=== PATIENT | female | born 1940 | race Caucasian/White ===

== ENCOUNTER 2017-10-17 11:10 | Observation (INO) ==
[2017-10-17] MEDS ORDERED: *HR* FentaNYL (PF) 100 MCG/2 ML VIAL IVP ONE (11:25)
--- NOTE | 2017-10-17 11:29 | Emergency Department Note ---
Disposition Clinical Impression: Pyelonephritis Disposition: Admitted As Inpatient Condition: Fair Forms: ED Satisfaction Letter Time of Disposition: 13:31 Back Pain HPI - General Chief Complaint: ED Back Pain/Injury Stated Complaint: right flank pain Time Seen by Provider: 10/17/17 11:16 Source: patient, family Mode of arrival: private vehicle Limitations: no limitations Nursing Notes Reviewed: Yes Vital Signs Reviewed: Yes - History of Present Illness Pt Subjective Complaint: back pain Onset (ago): hour(s) (Started abruptly about 5:00 this morning) Duration: intermittent Similar Symptoms Previously: No Location: right flank Pain Severity: severe Quality: sharp Radiation: none Improves with: immobilization Worsens with: movement Context: unknown Associated symptoms: Reports: denies other symptoms - Related Data Home Medications Medication Instructions Recorded Confirmed Alendronate Sodium 70 mg PO QWEEK 10/10/14 10/17/17 Amlodipine [Norvasc] 10 mg PO DAILY 10/10/14 10/17/17 Aspirin Enteric Coated [Aspirin EC] 81 mg PO DAILY 10/10/14 10/17/17 HydrALAZINE 25 mg PO TID 10/10/14 10/17/17 Levothyroxine [Synthroid] 88 mcg PO 0630 10/10/14 10/17/17 Lisinopril [Zestril] 40 mg PO DAILY 10/10/14 10/17/17 Loratadine [Claritin] 10 mg PO DAILY 10/10/14 10/17/17 Metformin [Glucophage] 500 mg PO BIDWM 10/10/14 10/17/17 Omega3/Dha/Epa/Fish Oil/Vit D3 1 each PO BID 10/10/14 10/17/17 [Fish Oil + Vitamin D-3 Softgel] Vitamin E 1,000 unit PO DAILY 10/10/14 10/17/17 Warfarin [Coumadin] 2.5 mg PO AD 09/22/17 10/17/17 Metoprolol [Lopressor] 100 mg PO BID 10/17/17 10/17/17 Allergies Allergy/AdvReac Type Severity Reaction Status Date / Time ezetimibe [From Zetia] Allergy Hives Verified 10/17/17 11:10 Aelcxyf-Dlj-Gdn Reductase AdvReac Muscle Pain Verified 10/17/17 11:10 Inhibitor [Statins] Sulfa (Sulfonamide AdvReac Hives Verified 10/17/17 11:10 Antibiotics) All systems ED: reviewed and negative except as stated. Constitutional: Denies: fever, chills ENT ED: Denies: ear pain, throat pain, congestion Cardiovascular: Denies: chest pain, palpitations Respiratory: Denies: cough, dyspnea Gastrointestinal: Reports: nausea, vomiting. Denies: abdominal pain, diarrhea, constipation Integumentary: Denies: rash Neurological: Denies: headache, weakness, numbness Past Medical History - Past Medical History Attestation: Yes The following information was validated with the patient. Source: patient, old records reviewed, nursing notes reviewed Medical history: Reports: arthritis, atrial fibrillation, COPD, coronary artery disease, diabetes, hyperlipidemia, hypertension, migraine, thyroid disease, valvular heart disease Surgical history: Reports: , cholecystectomy, coronary bypass (CABG), pacemaker/AICD, other Psychiatric history: Reports: no psych history CHAINSTITCH FELLED SEAM OPERATOR history: Reports: no CHAINSTITCH FELLED SEAM OPERATOR history - Social History Smoking Status: Never smoker Smokeless Tobacco Status: No Alcohol use: Reports: none Drug use: Reports: none Physical Exam - General Limitations: no limitations General appearance: alert, in no apparent distress - Head Head exam: atraumatic, normocephalic, normal inspection - Eye Eye exam: Present: normal appearance, PERRL, EOMI. Absent: scleral icterus, conjunctival injection - ENT ENT exam: normal exam, normal oropharynx, mucous membranes moist, normal external ear exam - Neck Neck exam: Present: normal inspection, full ROM. Absent: tenderness - Chest Chest inspection: Present: normal inspection, symmetric chest wall rise. Absent : tenderness - Respiratory Respiratory exam: Present: normal lung sounds bilaterally. Absent: respiratory distress, wheezes - Cardiovascular Cardiovascular exam: Present: regular rate, normal rhythm, normal heart sounds - Abdominal Exam Abdominal exam: Present: soft, Non-Tender, normal bowel sounds - Extremities Exam Extremities exam: Present: normal inspection. Absent: tenderness, pedal edema - Back Exam Back exam: Present: normal inspection, other (Patient was slow going from a supine to sitting position stating that it hurt her back to put her back to that range of motion.). Absent: CVA tenderness (R), paraspinal tenderness - Neurological Exam Neurological exam: Present: alert, oriented X3. Absent: motor sensory deficit - Psychiatric Psychiatric exam: Present: normal affect, normal mood - Skin Skin exam: Present: warm, dry. Absent: rash Course Course Narrative: Patient presents with right flank pain abrupt in onset this morning about 5:00. Some of her story sounds like muscular and some of it sounds like it could be something like kidney stone. She complains of pain with range of motion of her back on one hand but then on the other hand describes as being intermittent and sometimes coming when she sitting still and not moving. She has a history of self cathetering herself 3 times a day so certainly at risk for urinary tract problems. My physical exam shows increased discomfort with range of motion but no reproducibility to the discomfort on palpation. I am a get her medications for pain and I am going to CT her abdomen looking for kidney stone or other intra-abdominal or retroperitoneal pathology. I will also be checking her urine for infection. Disposition will be based on diagnostic results and reevaluation. - Reevaluation(s) Reevaluation #1: CAT scan shows hydronephrosis on both sides. However based on ultrasound back in July, this is a chronic condition. What we do see on the CAT scan is no obstructing ureteral stone but we do see some inflammatory changes around the ureter. Coupling this with the strongly positive urinalysis, my concern is that this patient is having pyelonephritis. She has been vomiting at home, she has diabetes and other chronic medical conditions, and she has a straight catheter herself so there is an obstructive issue. For these reasons I think that the patient should be admitted to the hospital for further IV antibiotic. I given a dose of Rocephin here. I will call the hospitalist to discuss management. Time: 13:16 - Consultations Consultation #1: Dr. Olivo, hospitalist - I discussed the case with the hospitalist. He agrees with admission and is accepted the patient. Time: 13:20 Vital Signs Temperature 98.3 F 10/17/17 11:11 Pulse Rate 60 10/17/17 11:11 Respiratory Rate 17 10/17/17 11:11 Blood Pressure 169/87 10/17/17 11:11 O2 Sat by Pulse Oximetry 93 10/17/17 11:11 Temperature 98.3 F 10/17/17 11:11 Pulse Rate 60 10/17/17 13:00 Respiratory Rate 18 10/17/17 13:00 Blood Pressure 128/63 10/17/17 13:00 O2 Sat by Pulse Oximetry 93 10/17/17 13:00 Oxygen Delivery Oxygen Delivery Room Air Back Pain/Injury - Medical Records Medical records reviewed: Yes I reviewed the patient's medical records. - Lab Data Lab results reviewed: Yes I reviewed the patient's lab results. Lab Results 10/17/17 Range/Units 12:31 Urine Color Yellow (Yellow) Urine Clarity Clear (Clear) Urine pH 7.0 (5.0-8.0) pH Units Ur Specific [place] 1.025 (1.010-1.025) Urine Protein >=300 H (Neg-Trace) mg/dL Urine Glucose (UA) Normal (Normal) mg/dL Urine Ketones Negative (Negative) mg/dL Urine Blood Large H (Negative) Urine Nitrite Positive A (Negative) Urine Bilirubin Negative (Negative) Urine Urobilinogen Normal (Normal) mg/dL Ur Leukocyte Esterase Small H (Negative) Urine Microscopic RBC 15-30 H (0-3) per hpf Urine Microscopic WBC 5-15 H (0-3) per hpf Ur Squamous Epith Cells Few (None-Few) per lpf Urine Bacteria Many H (None-Few) per hpf Ur Culture Indicated? YES A (NO) - Radiology Data Radiology results reviewed: Yes I reviewed the patient's radiology results.
[2017-10-17 12:47] LABS: Bilirubin,Urine Negative (Negative); Blood,Urine Large (Negative); Clarity,Urine Clear (Clear); Color,Urine Yellow (Yellow); Glucose,Urine (UA) Normal (Normal); Ketones,Urine Negative (Negative); Leukocyte Esterase,Urine Small (Negative); Nitrite,Urine Positive (Negative); Protein,Urine >=300 mg/dL (Neg-Trace); Specific Gravity,Urine 1.025 (1.010-1.025); Urobilinogen,Urine Normal (Normal)
[2017-10-17 13:01] LABS: Bacteria,Urine Many per hpf (None-Few); RBC,Urine 15-30 per hpf (0-3); Squamous Epithelial Cell,Urine Few per lpf (None-Few)
[2017-10-17 14:39] LABS: Basophils % 0.2 %; Eosinophils % 0.2 %; Hematocrit 36.9 % (35.3-44.9); Hemoglobin 12.1 g/dL (11.5-15.4); Immature Granulocytes % 0.4 % (0-4); Lymphocytes # 0.9 K/mcL (0.6-4.6); Mean Corpuscular HGB Conc 32.8 g/dL (31.6-35.5); Mean Corpuscular Hemoglobin 29.3 pg (28.0-33.3); Mean Corpuscular Volume 89.3 fL (83.0-100.0); Mean Platelet Volume 9.6 fL (9.4-12.4); Monocytes # 0.4 K/mcL (0.0-1.3); Monocytes % 7.6 %; Neutrophils # 3.8 K/mcL (1.6-8.9); Platelet Count 236 K/mcL (140-400); Red Blood Count 4.13 M/mcL (3.82-4.97); Red Cell Distribution Width 14.9 % (11.5-14.5); Segmented Neutrophils % 74.6 %
[2017-10-17 14:47] LABS: INR 4.5; Prothrombin Time 50.7 Seconds (9.4-12.1)
[2017-10-17 14:54] LABS: BUN/Creatinine Ratio 16 (6-26); Blood Urea Nitrogen 11 mg/dL (8-23); Calcium 9.2 mg/dL (8.6-10.3); Carbon Dioxide 30 mEq/L (23-29); Chloride 103 mEq/L (98-107); Glucose 112 mg/dL (70-105); Osmolality,Calculated 292 (280-300); Potassium 3.7 mEq/L (3.5-5.1); Sodium 141 mEq/L (136-145); eGFR For Non-African Americans > 60 (> 60)
[2017-10-17] MEDS ORDERED: Naloxone 0.4 MG/ML INJ IVP PRN (16:12)
[2017-10-17] MEDS ORDERED: NON-FORMULARY MEDICATION 1 EACH EACH (Alendronate Sodium [Alendronate Sodium] 70 MG) PO SCH (16:12)
[2017-10-17] MEDS ORDERED: 0.9 % Sodium Chloride 1,000 ML IVC SCH (16:12)
[2017-10-17] MEDS ORDERED: Acetaminophen 325 MG TABLET PO PRN (16:12)
[2017-10-17] MEDS: *HR* Metformin 500 MG TABLET PO SCH (16:51)
[2017-10-17] MEDS: hydrALAZINE 25 MG TABLET PO SCH ×2 (16:51→20:51)
--- NOTE | 2017-10-17 19:06 | Internal Med History&Physical ---
Date of Encounter: 10/17/17 Time of Encounter: 18:35 Assessment and Plan (1) Pyelonephritis Current visit: Yes Status: Acute She was given Rocephin empirically in emergency room. This will be continued with lactobacillus. (2) Hypertension Current visit: Yes Status: Chronic Continue Norvasc, lisinopril, Lopressor, and hydralazine. Qualifiers: Hypertension type: essential hypertension Qualified Code(s): I10 - Essential (primary) hypertension (3) DM type 2 (diabetes mellitus, type 2) Current visit: Yes Status: Chronic Hemoglobin A1c was 5.1% on 01/25/2017. Continue Glucophage. Qualifiers: Diabetes mellitus custodial insulin use: without local intermodal truck driver use Diabetes mellitus complication status: without complication Qualified Code(s): E11.9 - Type 2 diabetes mellitus without complications (4) Hypothyroidism Current visit: Yes Status: Chronic TSH was 3.543 on 01/25/2017. Continue present dose Synthroid. Qualifiers: Hypothyroidism type: unspecified Qualified Code(s): E03.9 - Hypothyroidism , unspecified Internal Medicine - H&P: HPI Chief complaint: Right flank pain Admitted From: Emergency Dept Plans for Post Hospital Care: Home History of present illness: Ms. Tabares is a 77 year old female who came to emergency room complaining of discomfort in her right flank that awakened her approximately 0500 today. She has had similar previous pain but the pain today was more severe and longer duration. She did self-catheterization twice with without relief. She had an episode of vomiting and decided to come to the emergency room. She was evaluated and felt to have possible UTI and was admitted to [facility] floor for ongoing care needs. history is pertinent for performing self catheter for approximately one year. She does not know the specific diagnosis requiring catheterization. She reports she has had occasional UTIs in the past. She denies other kidney or bladder disorders. Past Med Surg Social Fam HX - Past Medical History Medical history: arthritis, atrial fibrillation, COPD, coronary artery disease, diabetes, hyperlipidemia, hypertension, migraine, thyroid disease, valvular heart disease Additional medical history: AORTIC VALVE REPLACED. PACEMAKER Psychiatric history: no psych history - Past Surgical History Surgical History: , cholecystectomy, coronary bypass (CABG), pacemaker/ AICD, other Additional surgical history: tonsils removed - Social History Smoking Status: Never smoker Smokeless Tobacco Status: No Alcohol use: none Drug use: none Internal Medicine - H&P: Meds Alendronate Sodium 70 mg PO QWEEK 10/10/14 [History] Amlodipine [Norvasc] 10 mg PO DAILY 10/10/14 [History] Aspirin Enteric Coated [Aspirin EC] 81 mg PO DAILY 10/10/14 [History] HydrALAZINE 25 mg PO TID 10/10/14 [History] Levothyroxine [Synthroid] 88 mcg PO 0630 10/10/14 [History] Lisinopril [Zestril] 40 mg PO DAILY 10/10/14 [History] Loratadine [Claritin] 10 mg PO DAILY 10/10/14 [History] Metformin [Glucophage] 500 mg PO BIDWM 10/10/14 [History] Omega3/Dha/Epa/Fish Oil/Vit D3 [Fish Oil + Vitamin D-3 Softgel] 1 each PO BID [History] Vitamin E 1,000 unit PO DAILY 10/10/14 [History] Warfarin [Coumadin] 2.5 mg PO AD 09/22/17 [History] Metoprolol [Lopressor] 100 mg PO BID 10/17/17 [History] 3 Allergy/AdvReac Type Severity Reaction Status Date / Time ezetimibe [From Zetia] Allergy Hives Verified 10/17/17 11:10 Vistdco-Unp-Ofk Reductase AdvReac Muscle Pain Verified 10/17/17 11:10 Inhibitor [Statins] Sulfa (Sulfonamide AdvReac Hives Verified 10/17/17 11:10 Antibiotics) All Systems PM: A 10-system review of systems was performed and is negative for pertinent findings except as documented above in the HPI. Review of systems: Gen.: She states her weight is stable the past few months Cardiovascular: She has history of hypertension. She reports pacemaker was placed in 2011 at time of mechanical aortic valve replacement for bicuspid aortic valve. She denies SD heart failure DVT or pulmonary embolus. She is on lifelong Coumadin . The chart reports history of atrial fibrillation. Respiratory: She is a lifelong nonsmoker. She had PFTs 02/17/2017 which showed FVC 62% predicted, FEV1 68% predicted, FEV1/FVC 82%, MVV 48% predicted, RV 67% predicted, and DLCO (corrected) 63% predicted. Interpretation was restrictive lung disease with impaired diffusing capacity. No obstructive lung disease evidence. GI: She has had remote cholecystectomy. She denies disorders of her liver or exocrine pancreas. : As per history of present illness Neurologic: She denies large distribution strokes or seizures. Endocrine: She was diagnosed with DM 2 approximately 1999. She has hypothyroidism and hyperlipidemia. Hematology/oncology: She denies blood disorders cancers or anemia Psychiatric: She denies anxiety depression or other mental health issues. [place] skeletal: She has DJD but denies gout or other bone joint or muscle disorders. - Constitutional Vitals: Temp Pulse Resp BP Pulse Ox 99.1 F 63 16 153/75 93 10/17/17 18:36 10/17/17 18:36 10/17/17 18:36 10/17/17 18:36 10/17/17 18:36 Exam: Gen.: She is well developed well-nourished female resting comfortably in bed who appears in no acute distress at present time HEENT: Head is atraumatic and normocephalic. Eyes: EOMI. There is no scleral icterus. Mouth: Mucosa is moist. Neck: Supple and nontender. There is no thyromegaly or adenopathy noted. Heart: Regular without murmurs gallops or ectopics Lungs: No wheezes or crackles are heard. Back: Straight without flank tenderness to percussion. Abdomen: Soft and nontender. No masses or guarding are noted. Extremities: There is no cyanosis edema or clubbing noted. Dorsalis pedis and posttibial pulses are trace to 1+ palpable bilaterally. She has chronic venous stasis pigmentation changes of her lower legs and feet. She has minimal DJD changes of hands. Neurologic: Mental status: She is talkative and a good historian. Cranial nerves: Smile is symmetric. Forehead wrinkles bilaterally. Tongue protrudes midline. EOMI. Motor: There is no pronator drift. Cerebellar: Finger to nose is intact bilaterally. Skin: Warm and dry Internal Med - H&P Results - Labs CBC & Chem 7: 10/17/17 14:31 10/17/17 14:31 Labs: Short CBC 10/17/17 Range/Units 14:31 WBC 5.1 (4.3-11.1) K/mcL Hgb 12.1 (11.5-15.4) g/dL Hct 36.9 (35.3-44.9) % Plt Count 236 (140-400) K/mcL Neutrophils # 3.8 (1.6-8.9) K/mcL BMP 10/17/17 14:31 Sodium 141 Potassium 3.7 Chloride 103 Carbon Dioxide 30 H BUN 11 Creatinine 0.69 Glucose 112 H Calcium 9.2
[2017-10-17] MEDS: Lactobacillus 1 EACH CAP.SPRINK PO SCH (20:51)
[2017-10-17] MEDS: *HR* HYDROcodone/Acet 5/325 mg TABLET PO PRN (21:36)
[2017-10-18 05:22] LABS: Eosinophils % 0.2 %; Hematocrit 33.6 % (35.3-44.9); Hemoglobin 11.2 g/dL (11.5-15.4); Immature Granulocytes % 0.2 % (0-4); Lymphocytes # 0.8 K/mcL (0.6-4.6); Lymphocytes % 17.3 %; Mean Corpuscular HGB Conc 33.3 g/dL (31.6-35.5); Mean Corpuscular Hemoglobin 29.9 pg (28.0-33.3); Mean Corpuscular Volume 89.6 fL (83.0-100.0); Mean Platelet Volume 10.1 fL (9.4-12.4); Monocytes # 0.6 K/mcL (0.0-1.3); Monocytes % 13.4 %; Neutrophils # 3.2 K/mcL (1.6-8.9); Platelet Count 226 K/mcL (140-400); Red Blood Count 3.75 M/mcL (3.82-4.97); Red Cell Distribution Width 14.9 % (11.5-14.5); Segmented Neutrophils % 68.9 %
[2017-10-18 06:02] LABS: INR 4.6; Prothrombin Time 52.3 Seconds (9.4-12.1)
[2017-10-18 06:05] LABS: Alanine Aminotransferase 10 Units/L (7-52); Albumin 3.5 g/dL (3.5-5.7); Albumin/Globulin Ratio 1.2 (1.1-2.2); Alkaline Phosphatase 37 Units/L (34-104); Aspartate Amino Transferase 15 Units/L (13-39); BUN/Creatinine Ratio 19 (6-26); Bilirubin,Total 0.4 mg/dL (0.3-1.0); Blood Urea Nitrogen 14 mg/dL (8-23); Calcium 8.5 mg/dL (8.6-10.3); Carbon Dioxide 28 mEq/L (23-29); Chloride 102 mEq/L (98-107); Globulin 2.9 g/dL (2.4-3.5); Glucose 101 mg/dL (70-105); Osmolality,Calculated 291 (280-300); Potassium 3.3 mEq/L (3.5-5.1); Sodium 140 mEq/L (136-145); Total Protein 6.4 g/dL (6.4-8.9); eGFR For Non-African Americans > 60 (> 60)
[2017-10-18] MEDS: hydrALAZINE 25 MG TABLET PO SCH ×3 (08:20→20:04)
[2017-10-18] MEDS: *HR* Metformin 500 MG TABLET PO SCH ×2 (08:20→17:31)
[2017-10-18] MEDS: Lactobacillus 1 EACH CAP.SPRINK PO SCH ×2 (08:20→20:04)
[2017-10-18] MEDS: Aspirin Enteric Coated 81 MG Tablet PO SCH (08:21)
[2017-10-18] MEDS: amLODIPine 5 MG TABLET PO SCH (08:21)
[2017-10-18] MEDS: Lisinopril 20 MG TABLET PO SCH (08:21)
[2017-10-18] MEDS ORDERED: cefTRIAXone 1,000 MG in 0.9 % Sodium Chloride Mini Bag 100 ML IVPB SCH (09:00)
--- NOTE | 2017-10-18 09:38 | Internal Med Progress Note ---
Date of Encounter: 10/18/17 Time of Encounter: 09:30 - Assessment and plan (1) Pyelonephritis Current Visit: Yes Status: Acute Assessment and plan: October 18. Urine culture pending. Blood cultures have shown no growth. Discontinue Rocephin since she has nausea and reports her stools were slightly loose. Likely start Macrobid tomorrow (2) Hypertension Current Visit: Yes Status: Chronic Assessment and plan: October 18. Continue Norvasc, lisinopril, Lopressor, and hydralazine. Qualifiers: Hypertension type: essential hypertension Qualified Code(s): I10 - Essential (primary) hypertension (3) DM type 2 (diabetes mellitus, type 2) Current Visit: Yes Status: Chronic Assessment and plan: October 18. Hemoglobin A1c was 5.1% on 01/25/2017. Continue Glucophage. 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 TSH was 3.543 on 01/25/2017. Continue Synthroid. Qualifiers: Hypothyroidism type: unspecified Qualified Code(s): E03.9 - Hypothyroidism , unspecified - Subjective Interval history: October 18. She feels nauseated but has not vomited. She states her right flank pain has lessened since yesterday. - Constitutional Vitals: Temp Pulse Resp BP Pulse Ox 98.6 F 64 14 143/78 93 10/18/17 07:22 10/18/17 07:22 10/18/17 07:22 10/18/17 07:22 10/18/17 07:22 Exam: She appears in slight discomfort lying in bed. Her affect is overall cheerful. I reviewed her medications and lab results. Internal Medicine: Result - Labs CBC & Chem 7: 10/18/17 04:45 10/18/17 04:45 Labs: Short CBC 10/17/17 10/18/17 Range/Units 14:31 04:45 WBC 5.1 4.6 (4.3-11.1) K/mcL Hgb 12.1 11.2 L (11.5-15.4) g/dL Hct 36.9 33.6 L (35.3-44.9) % Plt Count 236 226 (140-400) K/mcL Neutrophils # 3.8 3.2 (1.6-8.9) K/mcL BMP 10/17/17 10/18/17 14:31 04:45 Sodium 141 140 Potassium 3.7 3.3 L Chloride 103 102 Carbon Dioxide 30 H 28 BUN 11 14 Creatinine 0.69 0.75 Glucose 112 H 101 Calcium 9.2 8.5 L Liver Function 10/18/17 Range/Units 04:45 Total Bilirubin 0.4 (0.3-1.0) mg/dL AST 15 (13-39) Units/L ALT 10 (7-52) Units/L Alkaline Phosphatase 37 (34-104) Units/L Albumin 3.5 (3.5-5.7) g/dL - ABG Interpretation ABG results: PT/INR, D-dimer PT 52.3 Seconds (9.4-12.1) H* 10/18/17 04:45 Consult Discharge Plan - Plan Referrals: Asaf Grace MD [Primary Care Provider] - 1 week
[2017-10-18] MEDS: *HR* HYDROcodone/Acet 5/325 mg TABLET PO PRN (17:33)
[2017-10-18] MEDS ORDERED: *HR* Warfarin 5 MG TABLET PO SCH (18:00)
[2017-10-18] MEDS ORDERED: Ondansetron ODT 4 MG TAB.RAPDIS SL PRN (18:36)
[2017-10-19 05:45] LABS: Basophils % 0.2 %; Eosinophils % 0.7 %; Hematocrit 34.8 % (35.3-44.9); Hemoglobin 11.5 g/dL (11.5-15.4); Immature Granulocytes % 0.5 % (0-4); Lymphocytes # 0.9 K/mcL (0.6-4.6); Mean Corpuscular Hemoglobin 29.6 pg (28.0-33.3); Mean Corpuscular Volume 89.7 fL (83.0-100.0); Mean Platelet Volume 10.6 fL (9.4-12.4); Monocytes # 0.8 K/mcL (0.0-1.3); Monocytes % 17.6 %; Neutrophils # 2.5 K/mcL (1.6-8.9); Platelet Count 227 K/mcL (140-400); Red Blood Count 3.88 M/mcL (3.82-4.97); Red Cell Distribution Width 15.3 % (11.5-14.5)
[2017-10-19 06:12] LABS: BUN/Creatinine Ratio 14 (6-26); Blood Urea Nitrogen 10 mg/dL (8-23); Calcium 8.7 mg/dL (8.6-10.3); Carbon Dioxide 29 mEq/L (23-29); Chloride 104 mEq/L (98-107); Glucose 81 mg/dL (70-105); Osmolality,Calculated 292 (280-300); Potassium 3.4 mEq/L (3.5-5.1); Sodium 142 mEq/L (136-145); eGFR For Non-African Americans > 60 (> 60)
[2017-10-19 07:51] VITALS: BP 159/83
[2017-10-19] MEDS: Lactobacillus 1 EACH CAP.SPRINK PO SCH (08:26)
[2017-10-19] MEDS: Lisinopril 20 MG TABLET PO SCH (08:26)
[2017-10-19] MEDS: *HR* Metformin 500 MG TABLET PO SCH (08:26)
[2017-10-19] MEDS: Aspirin Enteric Coated 81 MG Tablet PO SCH (08:26)
[2017-10-19] MEDS: hydrALAZINE 25 MG TABLET PO SCH (08:27)
[2017-10-19] MEDS: amLODIPine 5 MG TABLET PO SCH (08:27)
--- NOTE | 2017-10-19 09:44 | Discharge Summary ---
Date of Encounter: 10/19/17 Time of Encounter: 09:30 - Discharge Diagnosis (1) Pyelonephritis Priority: Primary Status: Acute (2) Hypertension Priority: Secondary Status: Chronic Qualifiers: Hypertension type: essential hypertension Qualified Code(s): I10 - Essential (primary) hypertension (3) DM type 2 (diabetes mellitus, type 2) Priority: Secondary Status: Chronic Qualifiers: Diabetes mellitus residential insulin use: without residential use Diabetes mellitus complication status: without complication Qualified Code(s): E11.9 - Type 2 diabetes mellitus without complications (4) Hypothyroidism Priority: Secondary Status: Chronic Qualifiers: Hypothyroidism type: unspecified Qualified Code(s): E03.9 - Hypothyroidism , unspecified Hospital course: Ms. Tabares is a 77 year old female who came to emergency room complaining of discomfort in her right flank that awakened her approximately 0500 today. She has had similar previous pain but the pain today was more severe and longer duration. She did self-catheterization twice with without relief. She had an episode of vomiting and decided to come to the emergency room. She was evaluated and felt to have possible UTI and was admitted to [facility] floor for ongoing care needs. Initial orders were written by the emergency room physician. I saw her on October 16 and performed a history and physical. She was started on Rocephin empirically through emergency room. Lactobacillus was also given. Preliminary urine culture report showed gram-negative rods the day of discharge. She will be given Macrobid 100 mg twice a day for 5 days at discharge. Her PCP can follow up on final report of urine culture and adjust antibiotics as needed. Coumadin was held during her hospital stay because of elevated INR. Her Coumadin dose will be decreased to 2.5 mg MWF. Supplemental potassium was given for hypokalemia. Prescription for 7 additional days was given at discharge. Her PCP can monitor labs. There were no other new problems are developed and on October 19 she was stable for discharge home. She will follow with her PCP Dr. Asaf Grace within 1 week. - Time Spent with Patient Total time spent providing and/or coordinating discharge services: - Discharge Medications Prescriptions: Lactobacillus [Culturelle] 1 each PO BID #10 cap.sprink Nitrofurantoin Monohyd/M-Cryst [Macrobid 100 mg Capsule] 100 mg PO BID #10 capsule Potassium Chloride 10 meq PO BIDWM #14 tab.er.prt Warfarin [Coumadin] 2.5 mg PO QMWF 365 Days tablet Home Medications: Alendronate Sodium 70 mg PO QWEEK 10/10/14 [History] Amlodipine [Norvasc] 10 mg PO DAILY 10/10/14 [History] Aspirin Enteric Coated [Aspirin EC] 81 mg PO DAILY 10/10/14 [History] HydrALAZINE 25 mg PO TID 10/10/14 [History] Levothyroxine [Synthroid] 88 mcg PO 0630 10/10/14 [History] Lisinopril [Zestril] 40 mg PO DAILY 10/10/14 [History] Loratadine [Claritin] 10 mg PO DAILY 10/10/14 [History] Metformin [Glucophage] 500 mg PO BIDWM 10/10/14 [History] Omega3/Dha/Epa/Fish Oil/Vit D3 [Fish Oil + Vitamin D-3 Softgel] 1 each PO BID [History] Vitamin E 1,000 unit PO DAILY 10/10/14 [History] Metoprolol [Lopressor] 100 mg PO BID 10/17/17 [History] Lactobacillus [Culturelle] 1 each PO BID #10 cap.sprink 10/19/17 [Rx] Nitrofurantoin Monohyd/M-Cryst [Macrobid 100 mg Capsule] 100 mg PO BID #10 capsule 10/19/17 [Rx] Potassium Chloride 10 meq PO BIDWM #14 tab.er.prt 10/19/17 [Rx] Warfarin [Coumadin] 2.5 mg PO QMWF 365 Days tablet 10/19/17 [Rx] Allergies/Adverse Reactions: 3 Allergy/AdvReac Type Severity Reaction Status Date / Time ezetimibe [From Zetia] Allergy Hives Verified 10/17/17 11:10 Ovjpfcr-Sek-Cwe Reductase AdvReac Muscle Pain Verified 10/17/17 11:10 Inhibitor [Statins] Sulfa (Sulfonamide AdvReac Hives Verified 10/17/17 11:10 Antibiotics) Date of admission: 10/17/17 13:42 Primary care physician: Asaf Grace MD - Constitutional Vitals: Temp Pulse Resp BP Pulse Ox 99.1 F 71 16 159/83 93 10/19/17 07:49 10/19/17 07:49 10/19/17 07:49 10/19/17 07:49 10/19/17 07:49 - Patient Status Disposition: Home, Self-Care Condition: Fair - Discharge Instructions Follow Up With: Asaf Grace MD [Primary Care Provider] - 1 week - Diet and Activity Activity: resume usual activities as tolerated Diet: advance to your usual diet
== END 2017-10-19 11:15 | disposition home or self-care (01) ==
LOC: EMEROOPIK 11:10 → INPPIK 11:10
PROVIDERS: ADMIT Internal Medicine; ATTEND Internal Medicine